=== PATIENT | female | born 1980 | race Two or more races ===

== ENCOUNTER 2025-03-30 14:50 | Emergency (ER) | payer MEDICAID, SELFPAY ==
--- NOTE | 2025-03-30 14:59 | EKG_ITS ---
[facility] Test Date: 2025-03-30 Pat Name: BERNADETTE CASTRO Department: Room: - Gender: Female [employer] Dispatcher: : 1980 Requested By: Vida Rg Order Number: [id number] Reading MD: Vida Rg Measurements Intervals Arthur Rate: 83 P: 75 DE: 145 QRS: 85 QRSD: 82 T: 61 QT: 336 QTc: 397 Interpretive Statements SINUS RHYTHM NONSPECIFIC T-WAVE ABNORMALITY No previous ECG available for comparison /store/S0/[id number].pdf
[2025-03-30 15:09] VITALS: BP 141/93; PULSE 93; RESP 20; TEMP 37; O2SAT 100; BMI 21.1
[2025-03-30] MEDS: ONDANSETRON ODT 4 MG TABRAP PO (15:32)
[2025-03-30] MEDS: ONDANSETRON INJ 2 MG/ML INJ 2 ML 4 MG IM (15:52)
--- NOTE | 2025-03-30 16:15 | PD.EDRME ---
Rapid Medical Screening Exam RME Arrival date/time: 03/30/25 14:50 This is a 44-year-old female that comes into the emergency room with complaints of nausea vomiting and feeling weak after donating blood. Patient has no other complaints. Patient states she felt like her heart was racing. I have greeted and performed a focused initial assessment of this patient. Initial appropriate labs ordered at this time. A comprehensive ED assessment and evaluation of the patient and analysis of all test and completion of medical decision making process will be conducted by additional ED provider. Chief Complaint: Arrhythmia/Palpitations Time Seen by Provider: 03/30/25 14:55 Vital signs: Vital Signs Temperature 98.6 F 03/30/25 15:09 Pulse Rate 93 03/30/25 15:09 Respiratory Rate 20 03/30/25 15:09 Blood Pressure 141/93 H 03/30/25 15:09 Pulse Oximetry (%) 100 03/30/25 15:09 Oxygen Delivery Method Room Air 03/30/25 15:09
[2025-03-30 16:47] LABS: Basophils # (Auto) 0.0 Thou/mm3 (0.0-0.2); Basophils % (Auto) 0 % (0-2.5); Eosinophils # (Auto) 0.0 Thou/mm3 (0.0-0.5); Eosinophils % (Auto) 0 % (0-10); Hematocrit 40.3 % (36.0-46.0); Hemoglobin 14.0 g/dL (12.0-16.0); Immature Granulocytes Auto 0.04 Thou/mm3 (0.00-0.00); Lymphocytes # (Auto) 1.1 Thou/mm3 (1.0-4.8); Lymphocytes % (Auto) 10 % (10-50); Mean Corpuscular HGB Conc 34.7 g/dl (31.0-37.0); Mean Corpuscular Hemoglobin 31.2 pg (25.0-35.0); Mean Corpuscular Volume 90 fL (80-100); Monocytes # (Auto) 0.4 Thou/mm3 (0.0-0.8); Monocytes % (Auto) 3 % (0-12); Neutrophils # (Auto) 9.7 Thou/mm3 (1.8-7.7); Neutrophils % (Auto) 86 % (37-80); Nucleated Red Blood Cell # 0.00 Thou/mm3 (0.00-0.00); Nucleated Red Blood Cell % 0 /100 WBC (0); Platelet Count 188 Thou/mm3 (140-440); RDW Standard Deviation 38.8 fL (36.4-46.3); Red Blood Count 4.49 Miln/mm3 (4.00-5.20); White Blood Count 11.2 Thou/mm3 (3.6-11.0)
[2025-03-30 16:59] LABS: Collection Type, Urine Voided
[2025-03-30 17:04] LABS: Bilirubin,Urine Negative (Negative); Blood,Urine Negative (Negative); Clarity,Urine Clear (Clear/Hazy); Color,Urine Lt-Yellow (Lt Yel-Yel); Culture Indicated,Urine Not Indicated; Glucose, Urine Negative (Negative); Ketones,Urine Trace (Negative); Leukocyte Esterase,Urine Negative (Negative); Nitrite,Urine Negative (Negative); PH,Urine 6.5 (5.0-7.0); Protein,Urine Negative (Neg - Trace); RBC,Urine < 1 /hpf (0-3); Specific Gravity,Urine 1.017 (1.001-1.035); Squamous Epithelial Cell,Urine 3 /hpf (0-5); Urobilinogen,Urine Negative mg/dL (0.0-1.0); WBC,Urine 2 /hpf (0-5)
[2025-03-30 17:07] LABS: Alanine Aminotransferase 13 U/L (10-49); Albumin, Serum 4.0 gm/dL (3.5-5.0); Albumin/Globulin Ratio 1.4 (1.2-2.2); Alkaline Phosphatase 61 U/L (46-116); Anion Gap 7 (7-16); Aspartate Amino Transferase 20 U/L (0-34); BUN/Creatinine Ratio 10 Ratio (12-20); Bilirubin,Total 0.9 mg/dL (0.3-1.2); Blood Urea Nitrogen 6 mg/dL (9-23); Calcium 9.4 mg/dL (8.3-10.6); Calcium (Corrected) 9.4 mg/dL (8.5-10.1); Carbon Dioxide 25.9 mMol/L (20.0-31.0); Chloride 109 mMol/L (98-107); Creatinine (Component) 0.6 mg/dL (0.6-1.3); Estimated Creatinine Clearance 112.0 mL/min (>60); Globulin 2.9 gm/dL (2.3-3.5); Glucose 140 mg/dL (74-106); Osmolality,Calculated 282 (275-295); Potassium 3.8 mMol/L (3.4-5.1); Sodium 142 mMol/L (136-145); Total Protein 6.9 gm/dL (5.7-8.2); eGFR > 60 See Note
[2025-03-30] MEDS: METOCLOPRAMIDE INJ 5 MG/ML VIAL 2 ML 10 MG IM (17:21)
[2025-03-30 17:30] VITALS: BP 118/72; PULSE 103; RESP 20; TEMP 36.8; O2SAT 99
[2025-03-30 17:30] LABS: Amphetamine/Methamp Scrn,U Negative (Negative); Barbiturate Screen,Urine Negative (Negative); Benzodiazepines Screen,Urine Negative (Negative); Benzoylecgonine Screen, Ur Negative (Negative); Fentanyl Screen,Urine Negative (Negative); Opiate Screen,Urine Negative (Negative); THC Screen,Urine Positive (Negative)
--- NOTE | 2025-03-30 17:51 | PD.EDNV ---
Nausea/Vomit./Diarrhea-RME/HPI General Chief complaint: Arrhythmia/Palpitations Stated complaint: Donated blood, light headed, palpitations Time Seen by Provider: 03/30/25 14:55 Arrival date/time: 03/30/25 14:50 This is a 44-year-old female that comes into the emergency room with complaints of nausea vomiting and feeling weak after donating blood. Patient has no other complaints. Patient states she felt like her heart was racing. RME / HPI RME / HPI Narrative: 03/30/25 14:50 This is a 44-year-old female that comes into the emergency room with complaints of nausea vomiting and feeling weak after donating blood. Patient has no other complaints. Patient states she felt like her heart was racing. I have greeted and performed a focused initial assessment of this patient. Initial appropriate labs ordered at this time. A comprehensive ED assessment and evaluation of the patient and analysis of all test and completion of medical decision making process will be conducted by additional ED provider. Related Data Previous Rx's ?Medication ?Instructions ?Recorded metoclopramide HCl 10 mg tablet 10 mg PO Q6H nausea/vomiting #30 01/06/19 (Reglan) tabs metoclopramide HCl 10 mg tablet 10 mg PO Q6H PRN nausea and 03/30/25 vomiting #20 tabs hydrocodone 5 mg-acetaminophen 325 1 tab PO Q6H PRN pain #15 tabs 04/08/25 mg tablet Allergies Allergy/AdvReac Type Severity Reaction Status Date / Time Penicillins Allergy Intermediate RASH AND Verified 04/08/25 20:10 ITCHING meperidine Allergy Unknown Hives Verified 04/08/25 20:10 Review of Systems Review of Systems Systems Reviewed: All systems reviewed, normal except as documented Past Medical History Past Medical History CARDIAC: Negative Cardiac Disorders or Congestive Heart Failure RESPIRATORY: Positive Asthma; Negative Chronic Obstructive Pulmonary Disease (COPD) GASTROINTESTINAL: Positive Gall Bladder Disease GENITOURINARY: Negative Renal Disease ENDOCRINE: Negative Diabetes Mellitus Type 1 or Diabetes Mellitus Type 2 HEMATOLOGIC: Negative Sickle Cell Disease Social History SMOKING STATUS: Current every day smoker ED Exam Narrative Physical exam: VITAL SIGNS: Reviewed. GENERAL APPEARANCE: Alert and interactive, follows commands, no acute distress, HEAD AND FACE: Non-traumatic. ENT: PERRL, conjuctiva pink and clear, eyelid no trauma, Mucous membrane moist. NECK: Supple, nontender, no nuchal rigidity. CHEST: No tenderness, no crepitus, no paradoxical movement, no retractions. LUNGS: Clear, well ventilated, symmetric, no rales, no wheezing, no rhonchi, no stridor, good breath sounds bilaterally. HEART: Regular rate, regular rhythm, no murmur, no gallops. ABDOMEN: Soft, nondistended,non tender NEUROLOGICAL: Gross motor function intact sensory function intact, Appropriate for age. MUSCULOSKELETAL: low back nontender, full range of motion. EXTREMITIES: No redness no swelling no skin breakdown on bilateral foot and leg. Distal neurovascular status intact bilateral foot SKIN: Color pink, dry, no rash, no lacerations, no abrasions, no contusions. Course Quality Measures none Orders Category Date Time Status Bedside Influenza A&B Antigen Test NOW Care 03/30/25 16:17 Completed EKG (ED ONLY) *Do not use* NOW Care 03/30/25 14:59 Completed EKG (ED Only) Stat Exams 03/30/25 14:59 Draft CBC Stat Lab 03/30/25 16:26 Completed Comprehensive Metabolic Panel Stat Lab 03/30/25 16:26 Completed Drug Screen,Urine Stat Lab 03/30/25 16:37 Completed Urinalysis, C/S if Indicated Stat Lab 03/30/25 16:37 Completed Metoclopramide Inj [Reglan Inj] Med 03/30/25 17:05 Discontinued 10 mg IM X1 ONE Ondansetron Inj [Zofran Inj] Med 03/30/25 15:44 Discontinued 4 mg IM X1 ONE Ondansetron Odt [Zofran Odt] Med 03/30/25 15:27 Discontinued 4 mg PO X1 ONE Vital Signs Vital signs: Vital Signs Temperature 98.6 F 03/30/25 15:09 Pulse Rate 93 03/30/25 15:09 Respiratory Rate 20 03/30/25 15:09 Blood Pressure 141/93 H 03/30/25 15:09 Pulse Oximetry (%) 100 03/30/25 15:09 Oxygen Delivery Method Room Air 03/30/25 15:09 PROCEDURES: EKG Interpretation #1: Date of EK03/30/25 Time of EK:10 Rate: 83 Interpretation: Interpreted by me (sinus rhythm ) EKG Impression: No ectopy, Normal QRS and Normal intervals Nausea/Vomiting/Diarrhea MDM Narrative MDM Narrative:: Patient feels better after Reglan IM given. Patient is states this has happened before previously went to get blood. Patient told to take it easy drink plenty of fluids CBC CMP urinalysis unremarkable. Patient was positive for marijuana otherwise labs unremarkable. Patient told to come back to the emergency room if symptoms change or worsen. Patient data External records reviewed:: [facility] previous records Clinical information provided by:: patient Social determinants that could affect healthcare access:: none Patient has the following chronic illnesses:: see hpi How is presenting disease/condition affected by chronic disease/condition?: uneffected by Evaluation data The following diagnostics were reviewed and interpreted by me:: lab results Lab and/or radiology exams considered but not ordered:: none Interpretation Summary: see note Medications / Prescriptions Medications / Prescriptions considered but not ordered:: none Medication administrations:: Medication Administration History Discontinued Medications Metoclopramide HCl (Metoclopramide Inj 5 Mg/Ml Vial 2 Ml) 10 mg IM X1 ONE; Protocol Stop: 03/30/25 17:06 Last Admin: 03/30/25 17:21 Dose: 10 mg Documented By: Ondansetron HCl (Ondansetron Odt 4 Mg Tabrap) 4 mg PO X1 ONE; Protocol Stop: 03/30/25 15:28 Last Admin: 03/30/25 15:32 Dose: 4 mg Documented By: Ondansetron HCl (Ondansetron Inj 2 Mg/Ml Inj 2 Ml) 4 mg IM X1 ONE; Protocol Stop: 03/30/25 15:45 Last Admin: 03/30/25 15:52 Dose: 4 mg Documented By: see [facility] Consultations Consultation(s) initiated? (list below): No Diagnosis Nausea Differential Diagnosis: drug-induced nausea and vomiting, dehydration and other (uti) Most likely diagnosis given after review of the tests above:: nausea after blood transfusion or nausea secondary to marijuana Admission Indicated Admission indicated?: not indicated Admission Request Was there a request for admission?: No Disposition Plan Disposition Plan: Discharge Discharge Attestation Discharge Attestation: The patient and all family members were given an opportunity to ask questions and understood the discharge instructions. Discharge instructions specifically effects, indications for sooner follow up or return to the emergency department, and the expected course of current diagnosis. Patient condition: Stable Discharge Plan Plan Patient Disposition: HOME (Self Care) Patient condition on transfer: Stable Prescriptions/Referrals Prescriptions/Med Rec: New metoclopramide HCl 10 mg tablet 10 mg PO Q6H PRN (Reason: nausea and vomiting) Qty: 20 0RF No Action metoclopramide HCl [Reglan] 10 mg tablet 10 mg PO Q6H Qty: 30 0RF hydrocodone-acetaminophen 5-325 mg tablet 1 tab PO Q6H MDD MAX 4 TABS PER DAY PRN (Reason: pain) Qty: 15 0RF Referrals: No Primary/Family,Physician [Primary Care Provider] - In 1 week Problem List Clinical Impression: Vomiting Patient/Caregiver Discharge Instructions Discharge Activity: activity as tolerated Education Materials: ED Vomiting (Adult) Additional Instructions: Get plenty of rest drink plenty of fluids. Follow up with primary provider in 1-2 days. Come back to ED if symptoms change or worsen Print Language: Turkish Stand Alone Forms: Pat Award Info., Work/School Release, Patient Portal Info Letter PA/DIRECTOR PRIVATE Supervising Physician PA/DIRECTOR PRIVATE Supervising Physician: [email or web address]
== END 2025-03-30 18:12 | disposition home or self-care (01) ==
PROVIDERS: Nurse Practitioner Family; Emergency Provider Family Medicine
DX: R11.2 Nausea with vomiting, unspecified (principal); R53.1 Weakness; R94.31 Abnormal electrocardiogram [ECG] [EKG]
CPT/HCPCS: 36415; 80053; 80307; 81001; 85025; 87400; 87811; 93005; 96372; 99284; J2405; J2765; Q0162

== ENCOUNTER 2025-04-08 20:07 | Emergency (ER) | payer MEDICAID, SELFPAY ==
[2025-04-08 20:10] VITALS: BMI 20.3
[2025-04-08 20:35] VITALS: BP 127/86; PULSE 88; RESP 16; TEMP 36.8; O2SAT 96
--- NOTE | 2025-04-08 21:19 | XR_ITS ---
Examination: Left wrist 2 views TECHNIQUE: AP lateral left wrist 2 views Date and time: April 08, 2025 2138 hours INDICATIONS: Patient fell today with injury to the wrist, wrist pain FINDINGS: Acute comminuted fractures distal radial metaphysis Displaced fracture ulnar styloid tip Carpal bones intact IMPRESSION: Acute comminuted fractures distal radial metaphysis, dorsal displacement of the main distal radial fracture fragment at least 8 mm
[2025-04-08] MEDS: KETOROLAC INJ 60 MG/2 ML VIAL 30 MG IM (21:44)
[2025-04-08] MEDS: ONDANSETRON ODT 4 MG TABRAP PO (23:07)
[2025-04-08] MEDS: MORPHINE SULF INJ 10 MG/ML VIAL 4 MG IM (23:07)
--- NOTE | 2025-04-08 23:19 | XR_ITS ---
Examination: Left wrist 2 views TECHNIQUE: AP lateral left wrist 2 views Date and time: April 08, 2025 1126 hours Comparison 9:38 PM wrist films this evening INDICATIONS: Postreduction films fractures distal radius FINDINGS: Stable alignment comminuted fractures distal radial metaphysis IMPRESSION: No significant change in alignment comminuted fractures distal radial metaphysis
[2025-04-08] MEDS: LIDOCAINE INJ PF 2% 5 ML VIAL INFL (23:36)
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
[2025-04-08 23:50] VITALS: BP 122/72; PULSE 72; RESP 16; TEMP 36.7; O2SAT 98
== END 2025-04-08 23:51 | disposition home or self-care (01) ==
PROVIDERS: Emergency Provider Emergency Medicine; PCP Family Medicine
DX: S52.502A Unspecified fracture of the lower end of left radius, initial encounter for closed fracture (principal); W19.XXXA Unspecified fall, initial encounter
CPT/HCPCS: 25605; 73100; 96372; 99283; J1885; J2270; Q0162